=== PATIENT | female | born 1960 ===

== ENCOUNTER 2020-11-05 13:22 | Outpatient (CLI) | payer OTHER | END 2020-11-05 13:39 | disposition home or self-care (01) | LOC: RAD 13:22 | PROVIDERS: ATTEND Plastic Surgery Surgery of the Hand | DX: R07.89 Other chest pain (principal); L91.8 Other hypertrophic disorders of the skin ==

== ENCOUNTER 2021-01-29 10:21 | Outpatient (CLI) | payer OTHER | END 2021-01-29 10:34 | disposition home or self-care (01) | LOC: MAMO-SONO 10:21 | PROVIDERS: ATTEND Obstetrics & Gynecology | DX: N63 Unspecified lump in breast (principal); N60.11 Diffuse cystic mastopathy of right breast ==